=== PATIENT | male | born 1945 | race Caucasian/White ===

== ENCOUNTER → 2016-10-22 | Outpatient (CLI) | payer MEDICARE, OTHER ==
--- NOTE | 2016-10-22 13:42 | MRI ---
EXAM DESCRIPTION: MRI brain/IAC without and with contrast CLINICAL HISTORY: Vertigo. Headaches. Dizziness COMPARISON: 01/19/2016 TECHNIQUE: Multi planar, multi sequence MRI evaluation of the brain/IAC, pre and post intravenous gadolinium FINDINGS: No signal abnormality mass lesion or pathologic enhancement along the course of the internal auditory canal bilaterally. Normal appearance of the vestibular cochlear apparatus. Normal aeration of mastoid air cells and middle ear. No intracranial hemorrhage, infarction, or mass lesion. Normal schultz-white matter differentiation. No signal abnormality throughout the brain. No restricted diffusion. No pathologic enhancement Ventricles are normal in size and configuration Normal flow voids are present in the major intracranial arteries and dural venous sinuses No abnormality is seen along the course of the cranial nerves. Normal appearance of the temporal bones Orbits are grossly normal No paranasal sinus fluid. Mucous retention cyst inferior posterior left maxillary sinus 1.5 cm. Mucosal thickening in ethmoid air cells bilaterally left greater than right. Minimal mucosal thickening frontal sinuses IMPRESSION: Normal pre and postcontrast MRI internal auditory canals Normal pre and postcontrast MRI brain Electronically signed by: Ruben Chavez MD 10/22/2016 1:41 PM CDT
== END | disposition home or self-care (01) ==
LOC: MRI 10:00
PROVIDERS: ATTEND Psychiatry & Neurology Neurology
DX: H81.391 Other peripheral vertigo, right ear (principal)

== ENCOUNTER → 2017-11-26 | Outpatient (CLI) | payer MEDICARE, OTHER ==
--- NOTE | 2017-11-26 10:48 | CT ---
EXAM DESCRIPTION: Abdomen w/Contrast CLINICAL HISTORY: ABDOMINAL PAIN COMPARISON: February 04, 2007 TECHNIQUE: CT of the abdomen only was performed with IV contrast. This exam was performed according to our departmental dose-optimization program, which includes automated exposure control, adjustment of the mA and/or kV according to patient size and/or use of iterative reconstruction technique. FINDINGS: No lung base abnormality. No pneumoperitoneum, adenopathy or ascites. No hiatal hernia or gastric wall thickening. No calcified gallstone. There are a few small round low density liver lesions which are too small to characterize but probably represent cysts or other benign lesions. The liver, spleen, pancreas, kidneys and adrenals are otherwise unremarkable. Visualized portions of the small bowel and mesentery are unremarkable. Colonic diverticulosis is partially visualized without apparent diverticulitis. Portions of the rectosigmoid colon are excluded from this exam. No evidence of appendicitis. Old healed left-sided rib fractures are noted. No acute fracture is seen. IMPRESSION: Colonic diverticulosis, partially visualized without apparent diverticulitis. No additional abnormality to explain patient's symptoms. If symptoms persist or worsen, follow-up CT of the abdomen and pelvis may be helpful for further evaluation. Several small round low density liver lesions, all too small to accurately characterize but probably representing cysts. Electronically signed by: Kenton Samaniego MD 11/26/2017 10:47 AM CDT
== END ==
LOC: CT 09:15
PROVIDERS: ATTEND Nurse Practitioner
DX: R93.5 Abnormal findings on diagnostic imaging of other abdominal regions, including retroperitoneum (principal); K57.30 Diverticulosis of large intestine without perforation or abscess without bleeding